=== PATIENT | female | born 1980 | race Hispanic/Latino ===

== ENCOUNTER → 2024-09-09 | Day surgery (SDC) | payer OTHER ==
[2024-09-07 16:23] LABS: BASOPHILS % 0.3 % (0.0-1.0); EOSINOPHILS # (AUTO) 0.2 (0.0-0.4); EOSINOPHILS % 2.1 % (0.0-6.0); HEMATOCRIT 40.2 % (34.2-44.1); HEMOGLOBIN 12.7 g/dL (12.0-16.0); LYMPHOCYTES % 31.8 % (18.0-39.1); MEAN CORPUSCULAR HGB CONC 31.6 g/dL (31-35); MEAN CORPUSCULAR VOLUME 91.8 fL (81-99); MONOCYTES # (AUTO) 0.5 (0.2-0.8); MONOCYTES % 5.6 % (4.4-11.3); NEUTROPHILS # (AUTO) 5.7 (2.1-6.9); NEUTROPHILS % 59.7 % (38.7-80.0); PLATELET COUNT 310 x10e3/uL (140-360); RED BLOOD COUNT 4.38 x10e6/uL (3.6-5.1); WHITE BLOOD COUNT 9.57 x10e3/uL (4.8-10.8)
[~2024-09-09] MED LIST: ASPIRIN81 MG PO; ESMOLOL HCL 100MG/10ML 10 MG/ML VIAL ONE; FENTANYL CITRATE/PF 100MCG/2 ML INJ ONE; FISH OIL 1,0001 EAC7 PO; GLIMEPIRIDE2 MG PO; LIDOCAINE HCL 2% LOCAL INJ 5 ML SDV VIAL INJ ONE; METFORMIN HCL500 M2 PO; ONDANSETRON HCL INJ 2MG/ML 2ML 2 MG/ML VIAL ONE; OZEMPIC2 MG/0.75 SC; PROPOFOL IV EMULSION 10 MG/ML 20 ML VIAL ONE; PROPOFOL IV EMULSION 50 ML IV ONE; SIMVASTATIN20 MG PO; VIT D PO
[2024-09-09] MEDS: CEFAZOLIN SODIUM 2 GM ONE (09:57)
[2024-09-09] MEDS: LACTATED RINGER'S 1,000 ML ONE (09:58)
[2024-09-09] MEDS: DEXTROSE 5% 250ML 250 ML IV ONE (10:21)
[2024-09-09 14:07] VITALS: TEMP 98.6
[2024-09-09 14:35] VITALS: BP 135/84; PULSE 96; RESP 16; O2SAT 96
== END | disposition home or self-care (01) ==
LOC: OR 09:05
PROVIDERS: ATTEND Podiatrist Foot Surgery
DX: M72.2 Plantar fascial fibromatosis (principal); M77.32 Calcaneal spur, left foot; M24.575 Contracture, left foot; E11.9 Type 2 diabetes mellitus without complications; E78.5 Hyperlipidemia, unspecified; Z88.1 Allergy status to other antibiotic agents; Z01.812 Encounter for preprocedural laboratory examination; Z01.818 Encounter for other preprocedural examination; Z79.84 Long term (current) use of oral hypoglycemic drugs; Z79.85 Long-term (current) use of injectable non-insulin antidiabetic drugs; Z79.82 Long term (current) use of aspirin; Z79.899 Other long term (current) drug therapy
CPT/HCPCS: 28100; 29893; 36415; 71046; 85025; 93005; J2003; J2405; J2704 ×2; J3010; J7121; V2790; 76000